=== PATIENT | female | born 1960 | race Caucasian/White ===

== ENCOUNTER 2018-02-20 19:50 | Emergency (ER) | payer OTHER ==
[~2018-02-20] VITALS: Ht 165.1 cm; Wt 108.0 kg
[2018-02-20 20:01] VITALS: BP 197/81
[2018-02-20] MEDS ORDERED: methylPREDNISolone SOD SUCC 125 MG/2 ML VL IM ONE (23:00)
[2018-02-21 00:09] LABS: Urine Bacteria NONE SEEN /hpf (None Seen); Urine Blood Negative /uL (Negative); Urine Mucus FEW (None Seen); Urine Specific Gravity 1.012 (1.001-1.035); Urine WBC 4 /hpf (0 - 5)
== END 2018-02-20 23:29 | disposition home or self-care (01) ==
LOC: ER 19:50
DX: R13.10 Dysphagia, unspecified (principal); N39.0 Urinary tract infection, site not specified; T37.8X5A Adverse effect of other specified systemic anti-infectives and antiparasitics, initial encounter; J45.909 Unspecified asthma, uncomplicated; I10 Essential (primary) hypertension; I25.2 Old myocardial infarction; Z88.1 Allergy status to other antibiotic agents; Z88.0 Allergy status to penicillin; Z88.8 Allergy status to other drugs, medicaments and biological substances; Y92.89 Other specified places as the place of occurrence of the external cause
CPT/HCPCS: 81001; 87086; 96372; 99284; J2930